=== PATIENT | male | born 1995 | race Caucasian/White ===

== ENCOUNTER 2019-03-02 09:24 | Emergency (ER) | payer SELFPAY ==
--- NOTE | 2019-03-02 10:10 | EDM.PDOC ---
ED HPI GENERAL MEDICAL PROBLEM - General Chief Complaint: Lower Extremity Injury/Pain Stated Complaint: KICKED BY A COW Time Seen by Provider: 03/02/19 09:35 Source of Information: Reports: Patient, Family History Limitations: Reports: No Limitations - History of Present Illness INITIAL COMMENTS - FREE TEXT/NARRATIVE: 24-year-old male who was kicked by a cow in the left leg earlier this morning, arrives for evaluation with left leg pain. He was kicked just above the knee on the left leg, no other injury. He walked around for a "few minutes" but now is unable to bear weight without significant pain. Onset: Sudden Duration: Hour(s): (Within the last few hours) Location: Reports: Lower Extremity, Left Associated Symptoms: Reports: No Other Symptoms Left Upper Leg Pain Score (Numeric/FACES): 8 - Related Data Allergies Allergy/AdvReac Type Severity Reaction Status Date / Time No Known Allergies Allergy Verified 03/02/19 09:44 Home Meds: Home Meds NK [No Known Home Meds] 03/02/19 [History] Past Medical History - Past Health History Medical/Surgical History: Denies Medical/Surgical History Social & Family History - Tobacco Use Smoking Status *Q: Current Every Day Smoker Years of Tobacco use: 8 Packs/Tins Daily: 1 - Caffeine Use Caffeine Use: Reports: Soda - Recreational Drug Use Recreational Drug Use: No Review of Systems - Review of Systems Review Of Systems: See Below Constitutional: Denies: Fever Respiratory: Reports: No Symptoms Cardiovascular: Reports: No Symptoms GI/Abdominal: Reports: No Symptoms Musculoskeletal: Reports: Leg Pain, Muscle Pain Skin: Denies: Bruising, Erythema Neurological: Reports: No Symptoms. Denies: Paresthesia ED EXAM, GENERAL - Physical Exam Exam: See Below Exam Limited By: No Limitations General Appearance: Alert, No Apparent Distress Head: Atraumatic Neck: Supple Respiratory/Chest: Lungs Clear Extremities: Other (Exam is otherwise limited to the lower extremities. There is no significant bruising, erythema or swelling of the left thigh compared to the right. He is tender to palpation over the left quadriceps into the left patellar tendon, but no deficit. He has significant pain with extension of the leg against resistance.) Course - Vital Signs Last Recorded V/S: Last Vital Signs Temp 96.5 F 03/02/19 09:45 Pulse 64 03/02/19 09:45 Resp 16 03/02/19 09:45 BP 123/56 L 03/02/19 09:45 Pulse Ox 97 03/02/19 09:45 - Orders/Labs/Meds Orders: Active Orders 24 hr Category Date Time Status Femur Min 2V Lt [CR] Stat Exams 03/02/19 09:45 Taken DME for Discharge [COMM] Stat Oth 03/02/19 10:04 Ordered - Re-Assessments/Exams Free Text/Narrative Re-Assessment/Exam: 03/02/19 10:07 X-ray of the left femur shows no fracture. A six-inch Buddy wrap was applied to the thigh which gave him good support and decreased pain. He was able to ambulate but with significant discomfort so was set up with crutches, encouraged to increase ambulation as tolerated and recheck in 3-4 days if not improving. He is to expect some bruising and discomfort. Departure - Departure Time of Disposition: 10:20 Disposition: Home, Self-Care 01 Condition: Good Clinical Impression: Contusion of left thigh, initial encounter - Discharge Information Instructions: Contusion, [id number] Referrals: PCP,None [Primary Care Provider] - Forms: ED Department Discharge Care Plan Goals: Wrap for comfort, ibuprofen or naproxen will help with pain and ice any to sore areas may be beneficial as well. Increase activity as tolerated and use crutches initially as needed. If unable to ambulate without crutches in 3-4 days , you should be rechecked. - My Orders Last 24 Hours: My Active Orders 03/02/19 09:45 Femur Min 2V Lt [CR] Stat 03/02/19 10:04 DME for Discharge [COMM] Stat - Assessment/Plan Last 24 Hours: My Active Orders 03/02/19 09:45 Femur Min 2V Lt [CR] Stat 03/02/19 10:04 DME for Discharge [COMM] Stat
--- NOTE | 2019-03-02 11:51 | CR ---
Femur Min 2V Lt CLINICAL HISTORY: Trauma FINDINGS: There is no acute fracture within the femur. No destructive changes are seen. There is no right opaque foreign body Impression: Negative
== END 2019-03-02 10:15 | disposition home or self-care (01) ==
LOC: JP.ED 09:24
DX: S70.12XA Contusion of left thigh, initial encounter (principal); W55.21XA Bitten by cow, initial encounter
CPT/HCPCS: 73552-26-LT; 73552-LT; 99283; 99283-25

== ENCOUNTER 2021-09-24 11:58 | Emergency (ER) | payer MEDICAID, OTHER | END 2021-09-24 15:07 | disposition left against medical advice (07) | LOC: JP.ED 11:58 | DX: M25.579 Pain in unspecified ankle and joints of unspecified foot (principal); Z53.21 Procedure and treatment not carried out due to patient leaving prior to being seen by health care provider ==

== ENCOUNTER 2023-12-23 18:00 | Emergency (ER) | payer BC, MEDICAID, OTHER ==
[2023-12-23 18:40] LABS: BASOPHILS PERCENT AUTO 1.3 % (0.1-1.3); EOSINOPHILS ABSOLUTE AUTO 0.28 K/uL (0.00-0.40); EOSINOPHILS PERCENT AUTO 3.6 % (0.0-5.4); HEMATOCRIT 44.9 % (38.4-49.7); HEMOGLOBIN 16.1 g/dL (12.9-16.9); IMMATURE GRAN ABSOLUTE AUTO 0.03 K/uL (0.00-0.23); IMMATURE GRAN PERCENT AUTO 0.4 % (0.0-0.7); LYMPHOCYTES ABSOLUTE AUTO 2.23 K/uL (0.8-3.3); LYMPHOCYTES PERCENT AUTO 28.5 % (11.4-47.7); MEAN CORPUSCULAR HEMOGLOBIN 30.7 pg (31.6-35.5); MEAN CORPUSCULAR HGB CONC 35.9 g/dL (31.6-35.5); MEAN CORPUSCULAR VOLUME 85.5 fL (81.4-99.0); MONOCYTES ABSOLUTE AUTO 0.49 K/uL (0.20-0.90); MONOCYTES PERCENT AUTO 6.3 % (3.3-12.6); NEUTROPHILS PERCENT AUTO 59.9 % (40.0-78.1); PLATELET COUNT,PLT 177 K/uL (130-375); RED BLOOD CELL COUNT 5.25 M/uL (4.14-5.76); WHITE BLOOD CELL COUNT,WBC 7.8 K/uL (3.2-11.0)
[2023-12-23] MEDS: Ketorolac 30 MG/ML SDV IM ONE (18:58)
[2023-12-23 19:03] LABS: ANION GAP 11.6 mmol/L (5.0-14.0); BLOOD UREA NITROGEN,BUN 9 mg/dL (7-18); C-REACTIVE PROTEIN <0.50 mg/dL (<0.50); CALCIUM 8.1 mg/dL (8.5-10.1); CARBON DIOXIDE,CO2 27 mmol/L (21-32); CHLORIDE,CL 102 mmol/L (100-108); CREATININE 1.2 mg/dL (0.8-1.3); EST CRCL DRUG DOSING (CG) 100.59 mL/min; ESTIMATED GFR 84 mL/min (>60); GLUCOSE RANDOM 99 mg/dL (74-106); SODIUM,NA 141 mmol/L (140-148)
== END 2023-12-23 23:50 | disposition home or self-care (01) ==
LOC: JP.ED 18:00
DX: R07.89 Other chest pain (principal); F17.210 Nicotine dependence, cigarettes, uncomplicated
CPT/HCPCS: 36415; 71045; 80048; 84484; 85025; 85379; 86140; 93005; 96372; 99285; J1885

== ENCOUNTER 2025-08-20 10:16 | Emergency (ER) | payer BC ==
[2025-08-20 10:42] LABS: BASOPHILS ABSOLUTE AUTO 0.11 K/uL (0.00-0.10); BASOPHILS PERCENT AUTO 1.7 % (0.1-1.3); EOSINOPHILS ABSOLUTE AUTO 0.21 K/uL (0.00-0.40); EOSINOPHILS PERCENT AUTO 3.2 % (0.0-5.4); IMMATURE GRAN PERCENT AUTO 0.2 % (0.0-0.7); LYMPHOCYTES ABSOLUTE AUTO 1.99 K/uL (0.8-3.3); LYMPHOCYTES PERCENT AUTO 30.2 % (11.4-47.7); MONOCYTES ABSOLUTE AUTO 0.44 K/uL (0.20-0.90); MONOCYTES PERCENT AUTO 6.7 % (3.3-12.6); NEUTROPHILS ABSOLUTE AUTO 3.84 K/uL (1.0-7.6); NEUTROPHILS PERCENT AUTO 58.0 % (40.0-78.1); PLATELET COUNT,PLT 202 K/uL (130-375); RED BLOOD CELL COUNT 5.45 M/uL (4.14-5.76); WHITE BLOOD CELL COUNT,WBC 6.6 K/uL (3.2-11.0)
[2025-08-20] MEDS: Ondansetron 4 MG/2 ML SDV IVPUSH ONE (10:44)
[2025-08-20 10:45] LABS: IMMATURE GRAN ABSOLUTE AUTO 0.01 K/uL (0.00-0.23)
[2025-08-20 10:54] LABS: INR 1.1
[2025-08-20 11:04] LABS: A/G RATIO 1.6 (1.2-2.2); ALANINE AMINOTRANSFERASE,ALT 40 U/L (12-78); ASPARTATE AMNIOTRANSFERASE,AST 26 U/L (15-37); BILIRUBIN TOTAL 4.9 mg/dL (0.2-1.0); BLOOD UREA NITROGEN,BUN 9 mg/dL (7-18); CARBON DIOXIDE,CO2 24 mmol/L (21-32); CHLORIDE,CL 103 mmol/L (100-108); CREATININE 1.1 mg/dL (0.8-1.3); EST CRCL DRUG DOSING (CG) 110.97 mL/min; ESTIMATED GFR 93 mL/min (>60); GLUCOSE RANDOM 106 mg/dL (74-106); POTASSIUM,K 3.9 mmol/L (3.6-5.2); PROTEIN TOTAL,TP 7.4 g/dL (6.4-8.2); SODIUM,NA 140 mmol/L (140-148); TROPONIN I HIGH SENSITIVITY 34.9 pg/mL (<=60.3)
[2025-08-20] MEDS: Sodium Chloride 0.9% 10 ML Syringe FLUSH ONE (11:14)
[2025-08-20] MEDS: Iopamidol 755 Mg/ML 100 ML Bottle IV SCH (11:14)
== END 2025-08-20 14:01 | disposition home or self-care (01) ==
LOC: JP.ED 10:16
DX: R07.89 Other chest pain (principal)
CPT/HCPCS: 36415; 71275; 80053; 84484; 85025; 85610; 93005; 94640; 96361; 96374; 96375; 99285; J1171; J2405; J7030; J7620; Q9967; 93010; 99284; A9270-GY